=== PATIENT | male | born 1950 | race Caucasian/White ===

== ENCOUNTER 2018-07-16 18:48 | Emergency (ER) | payer MEDICARE, MEDICAID ==
[~2018-07-16] VITALS: Ht 182.9 cm; Wt 76.7 kg
[2018-07-16 18:58] VITALS: BP 110/71
== END 2018-07-16 19:46 | disposition left against medical advice (07) ==
LOC: ED 19:40
DX: F10.129 Alcohol abuse with intoxication, unspecified (principal)
CPT/HCPCS: 99281

== ENCOUNTER 2019-01-29 09:56 | Emergency (ER) | payer MEDICARE, MEDICAID ==
[~2019-01-29] VITALS: Ht 182.9 cm; Wt 77.3 kg
--- NOTE | 2019-01-29 10:22 | NUR ---
no answer in lobby x 1 at 102
--- NOTE | 2019-01-29 10:39 | NUR ---
PT AMBULATORY TO LOBBY WITH STEADY GAIT FROM TRIAGE.
[2019-01-29 11:10] LABS: MEAN CORPUSCULAR HEMOGLOBIN 28.4 pg (27.5-34.5); MEAN CORPUSCULAR HGB CONC 32.2 g/dL (33.2-36.2); MEAN PLATELET VOLUME 8.4 fL (7.4-10.4); PLATELET COUNT 141 x10^3/uL (130-400); RED BLOOD COUNT 3.23 x10^6/uL (4.38-5.82); RED CELL DISTRIBUTION WIDTH 21.4 % (9.4-14.8)
[2019-01-29 11:17] LABS: ALANINE AMINOTRANSFERASE 23 U/L (12-78); ALBUMIN 2.7 g/dL (3.4-5.0); ANION GAP 6 mmol/L (5-15); CALCIUM 9.1 mg/dL (8.5-10.1); CHLORIDE 115 mmol/L (98-107); CREATININE 1.02 mg/dL (0.7-1.3)
[2019-01-29 11:21] LABS: ALKALINE PHOSPHATASE 104 U/L (45-117); BILIRUBIN,TOTAL 1.2 mg/dL (0.2-1.0); TOTAL PROTEIN 8.3 g/dL (6.4-8.2); TROPONIN I < 0.015 ng/mL (0.000-0.045)
[2019-01-29 11:32] LABS: MD YES
[2019-01-29 11:40] LABS: BASOS#(MANUAL) 0.06 x10^3/uL (0-0.1); BASOS% (MANUAL) 2 % (0-1); EOS#(MANUAL) 0.41 x10^3/uL (0.0-0.4); EOS% (MANUAL) 14 % (1-7); LYMPH#(MANUAL) 0.99 x10^3/uL (1-3.4); LYMPHS% (MANUAL) 34 % (22-44); MONOS#(MANUAL) 0.23 x10^3/uL (0.3-2.7); MONOS% (MANUAL) 8 % (2-9); SEG#(MANUAL) 1.22 x10^3/uL (1.8-6.8); SEGS% (MANUAL) 42 % (42-75)
[2019-01-29 11:41] LABS: <PLATELET ESTIMATE> ADEQUATE; <PLT MORPHOLOGY> NORMAL PLT MORPH; ANISOCYTOSIS 1+; POLYCHROMASIA 1+
--- NOTE | 2019-01-29 12:48 | NUR ---
PHYSICIAN OFFICE ASSISTANT: PT TO ROOM FROM [facility], AMBULATORY UPRIGHT STEADY GAIT.
[2019-01-29] MEDS ORDERED: MECLIZINE CHEWABLE 25 MG TAB PO ONE (13:00)
[2019-01-29] MEDS ORDERED: MECLIZINE CHEWABLE 25 MG TAB ONE (13:14)
--- NOTE | 2019-01-29 13:15 | NUR ---
TASK RN: PT ARRIVES TO ED VIA EMS PER HIM, PT REPORTS HE HAD MULTIPLE FALLS LAST NIGHT. PT REPORTS THIS IS ABNORMAL FOR HIM AND IS CONCERNED ABOUT HIS WELL BEING. PT REPORTS NOT TRUAMA OR PAIN AT THIS TIME. HAS NO VISIBLE BRUSING OR DEFROMITIES. PT IS ABLE TO AMBULATE SAFELY WITHOUT DIFFICULTY. PT PLACED IN BED AT THIS TIME. PT RESTING AND NO DISTRESS. PT MEDICATED PER EMAR.
--- NOTE | 2019-01-29 13:30 | NUR ---
PT STATES HIS LEGS HAVE BEEN HURTING AND THAT HE FELL 3 TIMES LAST NIGHT BUT DOES NOT KNOW WHY. URINE SAMPLE OBTAINED.
[2019-01-29 13:53] LABS: CULTURE INDICATED? YES; MICROSCOPIC INDICATED
--- NOTE | 2019-01-29 14:36 | NUR ---
PT AMBULATED DOWN HALLS OF ER WITHOUT ASSISTANCE, STEADY GAIT
[2019-01-29 15:01] VITALS: BP 159/78
== END 2019-01-29 15:03 | disposition home or self-care (01) ==
LOC: ED 13:33
DX: R42 Dizziness and giddiness (principal); N30.00 Acute cystitis without hematuria; F10.10 Alcohol abuse, uncomplicated; M79.661 Pain in right lower leg; M79.662 Pain in left lower leg; F17.210 Nicotine dependence, cigarettes, uncomplicated
CPT/HCPCS: 36415; 70450; 80053; 80307; 81001; 84484; 85025; 87077; 87086; 87186; 93005; 99284

== ENCOUNTER 2019-03-11 19:43 | Emergency (ER) | payer MEDICARE, MEDICAID ==
[~2019-03-11] VITALS: Ht 182.9 cm; Wt 70.0 kg
--- NOTE | 2019-03-11 20:00 | NUR ---
THIS IS A 68 Y/O MALE ARRIVING [facility] AFTER GROSS ETOH INTOXICATION. PT REPORTS THAT HE HAS HAD NO ETOH TODAY BUT IT IS PRESENT ON PTS BREATH. PT DENIES HX OF DIABETES AND BG FOR EMS WAS 91. PT HAS SMALL ABRASION TO RIGHT ARM AND SMALL SCRAPES THOUGHOUT BODY FROM "FALLS". PT IS A/OX3 UNABLE TO VERIFY DATE. PT HAS NO OTHER S/SX OF TRUAMA AND PERRLA IS PRESENT. PT CONNECTED TO MONITORS AND CALL LIGHT IN REACH. FALL PREVENTION MEASURES IN PLACE. PT ASKED TO CALL IF WANTING TO GET OUT OF BED. VSS
--- NOTE | 2019-03-11 20:42 | NUR ---
PT RESTING IN BED, NADN AND VSS. AWAITING FURTHER ORDERS.
[2019-03-11 20:54] VITALS: BP 92/43
--- NOTE | 2019-03-11 21:22 | NUR ---
PT STOOD UP AND ABLE TO URINATE IN URINAL. PT OFFERED SAFE DC PLAN. PT REFUSED. PT WISHING TO SEE HIS PHYSCIAN.
--- NOTE | 2019-03-11 22:35 | NUR ---
Patient/Caregiver given discharge instructions and they have confirmed that they understand the instructions. Patient ambulatory with steady gait.
--- NOTE | 2019-03-11 22:42 | NUR ---
PT GOT NAKED, PT INFORMED THAT HE MUST GET DRESSED AND READY FOR DC.
== END 2019-03-11 22:52 | disposition home or self-care (01) ==
LOC: ED 20:36
DX: S50.811A Abrasion of right forearm, initial encounter (principal); Z72.9 Problem related to lifestyle, unspecified; W01.0XXA Fall on same level from slipping, tripping and stumbling without subsequent striking against object, initial encounter; Y93.89 Activity, other specified; Y92.410 Unspecified street and highway as the place of occurrence of the external cause; Y99.8 Other external cause status
CPT/HCPCS: 99283

== ENCOUNTER 2019-04-21 10:05 | Inpatient (IN) | payer MEDICARE, MEDICAID ==
[~2019-04-21] VITALS: Ht 182.9 cm; Wt 77.2 kg
[2019-04-25 12:51] VITALS: BP 126/70
== END 2019-04-25 17:32 | DRG 442 ==
LOC: ED 12:20 → 3NE 12:21 → ED 12:40
PROVIDERS: ADMIT Internal Medicine; ATTEND Internal Medicine
PROC: 0T9B70Z Drainage of Bladder with Drainage Device, Via Natural or Artificial Opening (ICD-10-PCS; principal; 2019-04-21)
DX: K72.00 Acute and subacute hepatic failure without coma (principal); E87.2 Acidosis; D64.9 Anemia, unspecified; F17.210 Nicotine dependence, cigarettes, uncomplicated; Z87.440 Personal history of urinary (tract) infections
CPT/HCPCS: 36415; 70450; 71045; 74018; 80048; 80053; 81003; 82140; 83605; 83735; 84100; 84145; 85025; 85610; 87040; 93005; 99285; G0378; J1650; J2405; J7030; J7512